=== PATIENT | female | born 1940 | race Caucasian/White ===

== ENCOUNTER 2020-07-09 10:38 | Outpatient (CLI) | payer MEDICARE ==
[~2020-07-09 10:38] MED LIST: Iopamidol-370 76% 500 ML 1 ML ONE
--- NOTE | 2020-07-09 13:30 | CT ---
CT OF THE ABDOMEN AND PELVIS WITH IV CONTRAST: INDICATION: An 79-year-old female with a history of colon polyps and abnormal ultrasound. COMPARISON: Complete abdominal ultrasound of 06/05/2020. FINDINGS: The lung bases are clear. No focal hepatic lesion is evident. There are layered gallstones within the gallbladder. No overt extrahepatic or intrahepatic biliary d uctal dilatation is evident. The pancreas, adrenal glands, and spleen appear within normal limits. No focal renal lesion or hydronephrosis is evident. There is severe vascular calcification involving the abdominal aorta. There is scattered colonic diverticulosis without evidence of active diverticulitis. The small bowel is of normal caliber. There is a normal appendix in the right lower quadrant. The bladder is decompressed. Reproductive structures are not visualized and presumed to be surgicall y absent. No free fluid or enlarged lymph nodes are evident. There is scattered degenerative and osteoarthritic change. There is diffuse osteopenia. There is mi ld degenerative dextroscoliosis of the lumbar spine. IMPRESSION: 1. Cholelithiasis. 2. No suspicious abnormality is seen in the region of the pancreatic head or pancreatic body. No de finite intrahepatic or extrahepatic biliary ductal dilatation is evident. 3. Colonic diverticulosis without evidence of active diverticulitis. 4. Other chronic findings as above. POS: BH
== END 2020-07-09 10:39 | disposition home or self-care (01) ==
LOC: BICCT 10:38
PROVIDERS: ATTEND Internal Medicine Gastroenterology
DX: K80.20 Calculus of gallbladder without cholecystitis without obstruction (principal); R93.89 Abnormal findings on diagnostic imaging of other specified body structures; K57.30 Diverticulosis of large intestine without perforation or abscess without bleeding; I70.0 Atherosclerosis of aorta; M41.9 Scoliosis, unspecified; M85.80 Other specified disorders of bone density and structure, unspecified site; M19.90 Unspecified osteoarthritis, unspecified site; Z86.010 Personal history of colon polyps
CPT/HCPCS: 74177; 80048; Q9967